=== PATIENT | male | born 1995 | race Hispanic/Latino ===

== ENCOUNTER 2019-03-15 03:20 | Emergency (ER) | payer SELFPAY ==
[2019-03-15] MEDS ORDERED: Sodium Chloride 0.9% 1,000 ML IV STA (03:32)
--- NOTE | 2019-03-15 03:47 | ED PDOC ---
HPI: Psych/Substance Abuse Time Seen by Provider: 03/15/19 03:31 Chief Complaint (Nursing): Alcohol Ingestion Chief Complaint (Provider): Alcohol Ingestion ED Caveat: Intoxicated, Uncooperative History Per: Patient History/Exam Limitations: intoxication Current Symptoms Are (Timing): Still Present Additional Complaint(s): Patient is a 23 year old male with an unknown past medical history, who was brought to the emergency department by [facility] after being found intoxicated and also was noted to be vomiting in triage. On evaluation in ED, patient is non compliant and threatening by saying "I'm going to fuck you up" to staff. He is refusing to answer any questions and is being combative. PMD: no provider Past Medical History Reviewed: Historical Data, Nursing Documentation, Vital Signs Vital Signs: Last Vital Signs Temp 97.6 F 03/15/19 03:28 Pulse 161 H 03/15/19 03:28 Resp 16 03/15/19 03:28 BP 153/99 H 03/15/19 03:28 Pulse Ox 95 03/15/19 03:28 - Medical History PMH: No Chronic Diseases - Surgical History Surgical History: No Surg Hx - Family History Family History: States: Unknown Family Hx - Allergies Allergies/Adverse Reactions: Allergies Allergy/AdvReac Type Severity Reaction Status Date / Time No Known Allergies Allergy Verified 03/15/19 03:22 Review of Systems ROS Statement: Except As Marked, All Systems Reviewed And Found Negative Review Of Systems: ROS cannot be obtained secondary to pt's inabilty to answer questions. Constitutional: Positive for: Other (intoxication) Physical Exam - Reviewed Nursing Documentation Reviewed: Yes Vital Signs Reviewed: Yes - Physical Exam Appears: Negative for: Well (combative ) Skin: Positive for: Diaphoresis Comments: Not allowing provider to perform physical exam. - ECG O2 Sat by Pulse Oximetry: 95 (RA) Pulse Ox Interpretation: Normal Medical Decision Making Medical Decision Making: Time: 0332 A/P: Attempts at deescalation were unsuccessful. Patient is visibly intoxicated with an unsteady gait and diaphoretic. Patient will get 2 of ativan for patient and staff safety and to allow for further medical work up. Most likely intoxication unclear history as not cooperative. Patient is unsafe for discharge. No clear medical or situational history. Will get alcohol and drug levels. Will perform further PE when patient is more cooperative. --Alcohol serum --Ativan 2 mg IM --Sodium chloride 1,000 ml --Zofran 4 mg IVP Time: 349 --Patient tried to run out of hospital in underwear. --Patient was unsteady and tried to kick in doors. --Patient noticed to be slipping and was held up by security and ED staff. --Patient was placed on floor until stretcher came and is now on a stretcher with 4 point restraints. Scribe Attestation: Documented by Juan José De Los Santos, acting as a scribe Mavis Grant MD. Provider Scribe Attestation: All medical record entries made by the Scribe were at my direction and personally dictated by me. I have reviewed the chart and agree that the record accurately reflects my personal performance of the history, physical exam, medical decision making, and the department course for this patient. I have also personally directed, reviewed, and agree with the discharge instructions and disposition. Disposition - Clinical Impression Clinical Impression: Alcohol abuse with intoxication - Disposition Disposition: Transfer of Care Disposition Time: 07:00 (Transfer of care to Dr. Hoyos pending sobriety.) Condition: IMPROVED Additional Instructions: FOLLOW-UP WITH PMD WITHIN 2 DAYS FOR REEVALUATION. Instructions: Alcohol Abuse and Alcoholism (DC) Forms: [employer] (Swedish)
--- NOTE | 2019-03-15 07:17 | ED PDOC ---
- ECG O2 Sat by Pulse Oximetry: 99 (RA) Pulse Ox Interpretation: Normal Medical Decision Making Medical Decision Making: Time: 0700 Patient endorsed to provider from Sandra Grant MD. Pending sobriety. Time: 1140 Patient is awake, alert, and oriented x3 with a steady gait. Scribe Attestation: Documented by Jacky Parks, acting as a scribe for Destini Hoyos MD. Provider Scribe Attestation: All medical record entries made by the Scribe were at my direction and personally dictated by me. I have reviewed the chart and agree that the record accurately reflects my personal performance of the history, physical exam, medical decision making, and the department course for this patient. I have also personally directed, reviewed, and agree with the discharge instructions and disposition. Disposition - Clinical Impression Clinical Impression: Alcohol abuse with intoxication - POA Present On Arrival: None - Disposition Disposition: Routine/Home Disposition Time: 11:44 Condition: IMPROVED Additional Instructions: FOLLOW-UP WITH PMD WITHIN 2 DAYS FOR REEVALUATION. Instructions: Alcohol Abuse and Alcoholism (DC) Forms: [employer] (Indonesian)
[2019-03-15 12:01] VITALS: BP 123/76; PULSE 87; RESP 17; TEMP 98.1
[2019-03-16 13:53] VITALS: O2SAT 95
== END 2019-03-15 12:00 | disposition home or self-care (01) ==
LOC: H.ER 03:20
DX: F10.129 Alcohol abuse with intoxication, unspecified (principal)
CPT/HCPCS: 82948; 96372; 96374; 99285; G0480; J1630; J2060; J2405; J7030